=== PATIENT | male | born 1970 | race Caucasian/White ===

== ENCOUNTER 2022-04-18 13:22 | Outpatient (CLI) | payer OTHER, SELFPAY | END 2022-04-18 13:23 | disposition home or self-care (01) | PROVIDERS: PCP Internal Medicine; Visit Provider Internal Medicine | DX: Z00.00 Encounter for general adult medical examination without abnormal findings (principal); Z13.6 Encounter for screening for cardiovascular disorders; Z12.5 Encounter for screening for malignant neoplasm of prostate | CPT/HCPCS: 80053; 80061; 84153 ==

== ENCOUNTER 2022-12-10 09:05 | Outpatient (CLI) | payer OTHER, SELFPAY ==
--- NOTE | 2022-12-10 09:34 | W.ANESCHARGE ---
Anesthesia Charges Start Date/Time Anesthesia Start Date: 12/10/22 Anesthesia Start Time: 10:10 Stop Date/Time Anesthesia Stop Date: 12/10/22 Anesthesia Stop Time: 10:45
--- NOTE | 2022-12-10 10:51 | W.ANESCHARGE ---
Anesthesia Charges Start Date/Time Anesthesia Start Date: 12/10/22 Anesthesia Start Time: 10:10 Stop Date/Time Anesthesia Stop Date: 12/10/22 Anesthesia Stop Time: 10:45
== END 2022-12-10 09:06 | disposition home or self-care (01) ==
LOC: OP CLINIC 09:06
PROVIDERS: PCP Internal Medicine; Visit Provider Surgery
DX: Z12.11 Encounter for screening for malignant neoplasm of colon (principal); K64.8 Other hemorrhoids; K63.5 Polyp of colon; Z80.0 Family history of malignant neoplasm of digestive organs
CPT/HCPCS: 00811; 45385; 88305; J2704

== ENCOUNTER 2022-12-18 09:46 | Emergency (ER) | payer OTHER, SELFPAY ==
[2022-12-18] VITALS (14 sets, daily range): BP systolic 112–147; BP diastolic 56–97; PULSE 62–71; RESP 18; TEMP 36.6; O2SAT 94–98; BMI 41.1
[2022-12-18] MEDS: 0.9 % SODIUM CHLORIDE 1000 ml 1,000 ML IV (11:30)
[2022-12-18 11:51] LABS: Basophils Absolute Auto 0.03 K/uL (0.00-0.30); Basophils Percent Auto 0.6 % (0.0-3.0); Eosinophils Absolute Auto 0.26 K/uL (0.00-0.50); Eosinophils Percent Auto 5.4 % (0.0-7.0); Hematocrit 41.9 % (37.0-53.0); Hemoglobin* 13.5 gm/dL (13.5-17.5); Immature Granulocytes Abs Auto 0.01 K/uL (0.00-0.30); Immature Granulocytes Pct Auto 0.2 %; Lymphocytes Absolute Auto 1.46 K/uL (0.90-2.90); Lymphocytes Percent Auto 30.2 % (20-44); Mean Corpuscular HGB Conc 32 gm/dL (32-36); Mean Corpuscular Hemoglobin 28 pg (26-34); Mean Corpuscular Volume 86 fL (80-100); Monocytes Percent Auto 10.7 % (0.0-11.0); Neutrophils Absolute Auto 2.56 K/uL (1.7-7.0); Neutrophils Percent Auto 52.9 % (42.0-72.0); Platelet Count* 222 K/uL (140-440); RDW Coefficient of Variation % 14.5 % (11.5-15.5); Red Blood Count 4.87 m/uL (4.30-5.90); White Blood Count* 4.84 K/uL (4.50-11.00)
[2022-12-18 11:52] LABS: Albumin* 4.3 g/dL (3.3-5.0)
[2022-12-18 11:53] LABS: Chloride* 106 mmol/L (96-114); Potassium* 3.8 mmol/L (3.6-5.1); Sodium* 138 mmol/L (135-149)
[2022-12-18 11:54] LABS: Slide Review Reflex No
[2022-12-18 11:55] LABS: Alkaline Phosphatase* 77 U/L (40-150); Aspartate Amino Transferase* 49 U/L (12-35); Bilirubin Total* 0.6 mg/dL (0.1-1.5); Total Protein* 7.8 g/dL (6.0-8.3)
[2022-12-18 11:56] LABS: Alanine Aminotransferase* 38 U/L (4-50); D Dimer Quantitative* 0.31 ug/ml (0.00-0.50); Est. Creatinine Clearance* 102.75; Estimated Glomerular Filt Rate 92 ml/min
[2022-12-18 11:57] LABS: Anion Gap 8 mEq/L (7-15); Blood Urea Nitrogen* 18 mg/dL (7-30); Calcium* 9.3 mg/dL (8.4-10.6); Carbon Dioxide* 24 mmol/L (20-32); Glucose* 103 mg/dL (60-115)
[2022-12-18 11:59] LABS: C Reactive Protein* 0.7 mg/dL (0.5-1.0)
--- NOTE | 2022-12-18 12:31 | ED.GENADULT ---
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 He says he was just doing some work because his classes did not start for a little while and he was putting some shelving together. He does say that he was working with his arms overhead. He had an episode of feeling lightheaded and dizzy like he might faint, he denies vertigo. At the same time he says his chest felt ?funny although he is unable to further describe to me what that feels like. He specifically denies any pain, pressure or heaviness. He thinks maybe it felt like it was fluttery. He also notes that he has a little bit of pain on the left side of his neck. This pain does not radiate. Over time, symptoms have dissipated any now feels pretty close to back to normal. He denies any recent illness or injury, he has not had any neck trauma major or minor. He has no history of similar previous symptoms. He does not smoke or drink significantly. Here with his . Family history is negative for early coronary artery disease or stroke. He does not take any medications. He specifically denies any exertional symptoms, he says he worked out pretty hard this morning and felt good. Related Data Home Medications Medication Instructions Recorded Confirmed sildenafil 50 mg tablet 50 mg PO QDAY PRN 04/18/22 12/18/22 Previous Rx's Medication Instructions Recorded aripiprazole 5 mg tablet (Abilify) 5 mg PO QHS Anxiety #30 tabs 06/19/22 sertraline 100 mg tablet 200 mg (2 x 100 mg) PO QDAY 06/19/22 Anxiety #180 tabs Allergies Allergy/AdvReac Type Severity Reaction Status Date / Time No Known Drug Allergies Allergy Verified 07/22/22 09:53 Review of Systems Status of ROS: Reports: 10 or more systems reviewed and unremarkable except as noted in History and below PFS PFS Medical History Anxiety ?F41.9 - Anxiety disorder, unspecified (ICD-10) Screening due ?Z13.9 - Encounter for screening, unspecified (ICD-10) Social History Smoking Status: Never smoker Do you use any of these nicotine containing products: None Second hand tobacco smoke exposure: No How often do you have a drink containing alcohol: 2-3 times a week How many standard drinks containing alcohol do you have on a typical day: 5 or 6 How often do you have six or more drinks on one occasion: Never AUDIT-C Alcohol total score: 5 Non-prescribed substance use: denies use Little interest or pleasure in doing things: several days Feeling down, depressed, or hopeless: not at all Exam Narrative: Exam Narrative: Vital signs as noted above. In general, an alert, well-appearing patient. Head: Normocephalic, atraumatic. Eyes: Pupils are equal reactive. Extraocular movements are full without nystagmus. Conjunctivae are normal. ENT: Mucous membranes are moist. Throat is normal. Neck: Supple without lymphadenopathy. Mild tenderness in the left lateral neck, no swelling or erythema, no bruits. Heart: Regular rate and rhythm. No murmur or rub. Lungs: Clear bilaterally. No increased work of breathing, crackles or wheezes. Abdomen: Soft and nontender. No organomegaly. Extremities: Well perfused. No edema. No calf tenderness. Pulses intact. Neurologic: Patient is alert and oriented to person and place. Speech is fluent. Face is symmetric. Moves all extremities equally. Cerebellar function is intact by finger-nose testing. Affect: Normal. Skin: Warm and dry. Well perfused. Const: Vital Signs, click to edit/add: Vital Signs - 24 hr 12/18/22 10:05 12/18/22 11:42 12/18/22 12:02 Temperature 97.8 F Pulse Rate Pulse Rate [Pulse Oximeter] 68 65 Respiratory Rate 18 Blood Pressure Blood Pressure [Le ft Upper Arm] 112/56 L Blood Pressure [Ri ght Upper Arm] 147/97 H Pulse Oximetry 94 97 97 Oxygen Delivery Me thod Room Air Room Air 12/18/22 12:03 12/18/22 12:04 12/18/22 12:15 Temperature Pulse Rate 64 66 65 Pulse Rate [Pulse Oximeter] Respiratory Rate Blood Pressure 112/56 L Blood Pressure [Le ft Upper Arm] Blood Pressure [Ri ght Upper Arm] Pulse Oximetry 95 97 98 Oxygen Delivery Me thod 12/18/22 12:30 12/18/22 12:32 12/18/22 12:40 Temperature Pulse Rate 71 62 62 Pulse Rate [Pulse Oximeter] Respiratory Rate Blood Pressure 126/81 127/76 Blood Pressure [Le ft Upper Arm] Blood Pressure [Ri ght Upper Arm] Pulse Oximetry 98 98 97 Oxygen Delivery Me thod 12/18/22 12:42 Temperature Pulse Rate 66 Pulse Rate [Pulse Oximeter] Respiratory Rate Blood Pressure 131/85 Blood Pressure [Le ft Upper Arm] Blood Pressure [Ri ght Upper Arm] Pulse Oximetry 97 Oxygen Delivery Me thod Documenting provider has reviewed patient's vital signs: yes Course Course ED Course: On arrival patient had an EKG which by my review shows a normal sinus rhythm with a ventricular rate of 68. No acute ST segment changes. T-waves are unremarkable. I checked a number of labs including a CBC which showed a normal white blood cell count of 4.8, normal hemoglobin of 13.5 and a normal diff. A D-dimer was negative at 0.31. Metabolic panel was entirely normal, blood sugar was 103. LFTs unremarkable aside from an AST of 49. CRP was normal at 0.7. Initial point of care troponin was 0, repeat troponin is pending. Diagnostic considerations include orthostasis or vagal episode, arrhythmia, consideration given to possible subclavian steal syndrome but blood pressures are normal and equal in both arms, no history of previous similar episodes, felt to be less likely. Assuming 2nd troponin is negative I think it is reasonable to let him go home with a diagnosis of near syncope cause not determined. If he has recurrent spell should be seen again either in the ER by primary care, for overt fainting, severe pain etcetera return to the emergency department at any time. Patient did not have vertigo, does not have ataxia, no other neurologic complaints and no history of any type of neck trauma. Symptoms have dissipated without treatment. I suspect that the neck pain is musculoskeletal and not related to dissection. Vital Signs Vital signs: Initial Vital Signs Temperature 97.8 F 12/18/22 10:05 Temperature Source Temporal Artery Scan 12/18/22 10:05 Pulse Rate 68 12/18/22 10:05 Pulse Rhythm Regular 12/18/22 10:05 Respiratory Rate 18 12/18/22 10:05 Blood Pressure 147/97 H 12/18/22 10:05 Blood Pressure Mean 113 H 12/18/22 10:05 Blood Pressure Position Semi-Fowlers 12/18/22 10:05 Pulse Oximetry 94 12/18/22 10:05 Oxygen Delivery Method Room Air 12/18/22 10:05 Vital Signs Temperature 97.8 F 12/18/22 10:05 Pulse Rate 68 12/18/22 10:05 Respiratory Rate 18 12/18/22 10:05 Blood Pressure 147/97 H 12/18/22 10:05 Pulse Oximetry 94 12/18/22 10:05 Oxygen Delivery Method Room Air 12/18/22 10:05 Temperature 97.8 F 12/18/22 10:05 Pulse Rate 66 12/18/22 12:42 Respiratory Rate 18 12/18/22 10:05 Blood Pressure 131/85 12/18/22 12:42 Pulse Oximetry 97 12/18/22 12:42 Oxygen Delivery Method Room Air 12/18/22 12:02 Medications Administered Medications: Discontinued Medications Generic Name Dose Route Start Last Admin Trade Name Freq PRN Reason Stop Dose Admin Sodium Chloride 1,000 mls @ 1,000 mls/hr 12/18/22 11:45 12/18/22 12:48 0.9 % Sodium Chloride 1000 Ml IV 12/18/22 12:44 Infused .Q1H RICARDO Infusion Medical Decision Making Lab Data Labs: Lab Results 12/18/22 12/18/22 12/18/22 Range/Units 10:20 10:43 12:27 WBC 4.84 (4.50-11.00) K/uL RBC 4.87 (4.30-5.90) m/uL Hgb 13.5 (13.5-17.5) gm/dL Hct 41.9 (37.0-53.0) % MCV 86 (80-100) fL MCH 28 (26-34) pg MCHC 32 (32-36) gm/dL RDW Coeff of Brian 14.5 (11.5-15.5) % Plt Count 222 (140-440) K/uL Neut % (Auto) 52.9 (42.0-72.0) % Lymph % (Auto) 30.2 (20-44) % Fergus % (Auto) 10.7 (0.0-11.0) % Eos % (Auto) 5.4 (0.0-7.0) % Baso % (Auto) 0.6 (0.0-3.0) % Neut # (Auto) 2.56 (1.7-7.0) K/uL Lymph # (Auto) 1.46 (0.90-2.90) K/uL Fergus # (Auto) 0.50 (0.00-0.90) K/UL Eos # (Auto) 0.26 (0.00-0.50) K/uL Baso # (Auto) 0.03 (0.00-0.30) K/uL Abs Immat Gran (auto) 0.01 (0.00-0.30) K/uL Imm/Tot Granulo (auto) 0.2 % D-Dimer Quant (PE/DVT) 0.31 (0.00-0.50) ug/ml Sodium 138 (135-149) mmol/L Potassium 3.8 (3.6-5.1) mmol/L Chloride 106 (96-114) mmol/L Carbon Dioxide 24 (20-32) mmol/L Anion Gap 8 (7-15) mEq/L BUN 18 (7-30) mg/dL Creatinine 1.0 (0.5-1.5) mg/dL Estimated Creat Clear 102.75 Estimated GFR 92 ml/min Glucose 103 (60-115) mg/dL Calcium 9.3 (8.4-10.6) mg/dL Total Bilirubin 0.6 (0.1-1.5) mg/dL Direct Bilirubin 0.0 (0.0-0.5) mg/dL AST 49 H (12-35) U/L ALT 38 (4-50) U/L Alkaline Phosphatase 77 (40-150) U/L C-Reactive Protein 0.7 (0.5-1.0) mg/dL Total Protein 7.8 (6.0-8.3) g/dL Albumin 4.3 (3.3-5.0) g/dL POC Troponin I 0.00 L 0.00 L (0.01-0.04) ng/ml Discharge Plan Discharge Clinical Impression: Near syncope Patient Disposition: Home, Self-Care Condition: Improved Instructions: Near Syncope (ED) Additional Instructions: If you have recurrent symptoms, follow-up with primary care or return. For fainting, significant pain or other acute worsening return at any time to the emergency department. Prescriptions: No Action sildenafil 50 mg tablet 50 mg PO QDAY PRN Rx Instructions: administer 30 minutes to 4 hours before activity sertraline 100 mg tablet 200 mg PO QDAY Qty: 180 3RF aripiprazole [Abilify] 5 mg tablet 5 mg PO QHS Qty: 30 0RF Follow Up/Referrals: Edvin Torres MD [Primary Care Provider] - Stand Alone Forms: [facility] Info Instructions
== END 2022-12-18 13:14 | disposition home or self-care (01) ==
PROVIDERS: Emergency Provider Emergency Medicine; PCP Internal Medicine
DX: R55 Syncope and collapse (principal)
CPT/HCPCS: 36415; 80048; 80076; 84484; 85025; 85379; 86140; 93005; 99284; J7030

== ENCOUNTER 2023-01-13 11:09 | Observation (INO) | payer OTHER, SELFPAY ==
[2023-01-13] VITALS (9 sets, daily range): BP systolic 124–160; BP diastolic 69–120; PULSE 74–108; RESP 16–22; TEMP 21.1–37.1; O2SAT 94; BMI 41.1; BMI 41.4
--- NOTE | 2023-01-13 11:19 | CRLHL7_ITS ---
For Patients: As a result of the Century Cures Act, medical imaging exams and procedure reports are released immediately into your electronic medical record. You may view this report before your referring provider. If you have questions, please contact your health care provider. INDICATION: Right-sided neck pain. TECHNIQUE: CT images acquired through the neck following intravenous contrast. COMPARISON: None. FINDINGS: Beam hardening artifact secondary to dental amalgam limits evaluation of adjacent structures. Diffuse enlargement and striated enhancement of the palatine tonsils, compatible with tonsillitis. Small foci of hypoenhancement within the inferior right and left palatine tonsils may represent phlegmon and/or edema. No definitive or drainable peritonsillar abscess within exam limitations. There is mild narrowing of the oropharyngeal airway. The parapharyngeal fat is preserved. No thickening of the epiglottis or retropharyngeal edema. Diffuse enlargement of the lingual tonsils. No enhancing lesions in the oral cavity or floor of mouth. The parotid and submandibular glands unremarkable. Enlarged bilateral level II and III lymph nodes are nonspecific, though demonstrate elongated morphology and are most likely reactive. The thyroid gland is unremarkable. Limited images through the brain are without pathologic intracranial enhancement. Mild right maxillary sinus mucosal thickening. The mastoid air cells are clear. Multilevel cervical spondylosis. No aggressive osseous lesions. No concerning opacities in the visualized lungs. IMPRESSION: 1. Diffuse enlargement and striated enhancement of the palatine tonsils, compatible with tonsillitis. Small foci of hypoenhancement within the inferior right and left palatine tonsils may represent phlegmon and/or edema. No definitive or drainable peritonsillar abscess is visualized within exam limitations. There is mild narrowing of the oropharyngeal airway. 2. Multiple enlarged bilateral level II and III lymph nodes demonstrate elongated morphology and are most likely reactive. Please note that all CT scans at this facility use dose modulation, iterative reconstruction, and/or weight-based dosing when appropriate to reduce radiation dose to as low as reasonably achievable. Dictated by Pacheco Campbell MD @ 01/13/2023 12:16:35 PM (Electronically Signed)
--- NOTE | 2023-01-13 11:22 | ED_ITS ---
HPI - General Adult General Chief complaint: Sore Throat Stated complaint: Referred from clinic, possible throat abscess Time Seen by Provider: 01/13/23 11:10 History of Present Illness HPI narrative: 52 year white male went to Urgent Care today with severe sore throat for couple of days real difficulty swallowing right greater than left sore throat. Positive for strep, white count [id number], patient has had difficulty swallowing, does feel little bit of pain into his lower throat as well, mostly S1 is swallowing in his upper throat. He has had fever. No other complaints, no nuchal rigidity. No history of trismus, no history tree of being unable to swallow but it is painful. Reports a right-sided this throat is worse in the left as mention Related Data Home Medications Medication Instructions Recorded Confirmed aripiprazole 2 mg tablet 2 mg PO HS anxiety 01/13/23 01/13/23 sertraline 100 mg tablet 200 mg PO HS Anxiety 01/13/23 01/13/23 Allergies Allergy/AdvReac Type Severity Reaction Status Date / Time No Known Drug Allergies Allergy Verified 07/22/22 09:53 Review of Systems Status of ROS: Reports: 6 or more systems reviewed and unremarkable except as noted in History and below [facility] Medical History Anxiety ?F41.9 - Anxiety disorder, unspecified (ICD-10) Screening due ?Z13.9 - Encounter for screening, unspecified (ICD-10) Social History Smoking Status: Never smoker Do you use any of these nicotine containing products: None Second hand tobacco smoke exposure: No How often do you have a drink containing alcohol: 2-3 times a week How many standard drinks containing alcohol do you have on a typical day: 5 or 6 How often do you have six or more drinks on one occasion: Never AUDIT-C Alcohol total score: 5 Non-prescribed substance use: denies use Little interest or pleasure in doing things: several days Feeling down, depressed, or hopeless: not at all Exam Narrative: Exam Narrative: Objective: Vital signs show elevated blood pressure, afebrile now Alert orient x3 Bilateral tonsillar hypertrophy right greater than left redness of the throat pharyngeal cellulitic changes apparent, no marked exudate, no obvious peritonsillar abscess, but again the tonsils are big Neck is supple Neurologic grossly nonfocal Patient has normal phonation. No obvious trismus Const: Vital Signs, click to edit/add: Vital Signs - 24 hr 01/13/23 11:12 01/13/23 12:54 Temperature 98.8 F Pulse Rate [Right Pulse Oximeter] 108 H 88 Respiratory Rate 22 16 Blood Pressure [Ri t Upper Arm] 160/120 H 146/85 H Pulse Oximetry 94 94 Oxygen Delivery Me thod Room Air Room Air Course Vital Signs Vital signs: Initial Vital Signs Temperature 98.8 F 01/13/23 11:12 Temperature Source Temporal Artery Scan 01/13/23 11:12 Pulse Rate 108 H 01/13/23 11:12 Respiratory Rate 22 01/13/23 11:12 Respiratory Effort Normal 01/13/23 11:12 Respiratory Depth Normal 01/13/23 11:12 Respiratory Pattern Normal 01/13/23 11:12 Blood Pressure 160/120 H 01/13/23 11:12 Blood Pressure Mean 133 H 01/13/23 11:12 Blood Pressure Position Sitting 01/13/23 11:12 Pulse Oximetry 94 01/13/23 11:12 Oxygen Delivery Method Room Air 01/13/23 11:12 Vital Signs Temperature 98.8 F 01/13/23 11:12 Pulse Rate 108 H 01/13/23 11:12 Respiratory Rate 22 01/13/23 11:12 Blood Pressure 160/120 H 01/13/23 11:12 Pulse Oximetry 94 01/13/23 11:12 Oxygen Delivery Method Room Air 01/13/23 11:12 Temperature 98.8 F 01/13/23 11:12 Pulse Rate 88 01/13/23 12:54 Respiratory Rate 16 01/13/23 12:54 Blood Pressure 146/85 H 01/13/23 12:54 Pulse Oximetry 94 01/13/23 12:54 Oxygen Delivery Method Room Air 01/13/23 12:54 Medications Administered Medications: Discontinued Medications Generic Name Dose Route Start Last Admin Trade Name Freq PRN Reason Stop Dose Admin Sodium Chloride 1,000 mls @ 6,000 mls/hr 01/13/23 11:30 01/13/23 12:27 0.9 % Sodium Chloride 1000 Ml IV 01/13/23 11:39 Infused .Q10M RICARDO Infusion Ampicillin Sodium/Sulbactam 100 mls @ 200 mls/hr 01/13/23 11:21 01/13/23 12:27 Sodium 3 gm/ Sodium Chloride IVPB 01/13/23 11:22 Infused ONCE ONE Infusion Methylprednisolone Sodium Succinate 125 mg 01/13/23 11:20 01/13/23 11:52 Methylprednisolone Sod Succ 62.5 Mg/Ml (125) IVP 01/13/23 11:21 125 mg ONCE ONE Administration Morphine Sulfate 4 mg 01/13/23 11:20 01/13/23 11:53 Morphine 4 Mg/Ml Inj IVP 01/13/23 11:21 4 mg ONCE ONE Administration Medical Decision Making MDM Narrative Medical decision making narrative: [age] year white male with strep throat with rule out peritonsillar abscess on the right with increasing pain and swelling. At this point I think that is reasonable to do a CT of his neck, will put an IV and give a L fluid give him some IV Solu-Medrol for steroid coverage as well as Unasyn for antibiotic, [place] [id number] with a positive strep test at the urgent care. This will not be repeated. Disposition pending his CT scan. Will also give him morphine 4 mg IV for pain relief. ENT consult if there is an abscess. Addendum 12:23 p.m. the patient has minimal airway narrowing, has edema or phlegmon and palatine tonsil, is mild pharyngeal cellulitic change, he has got a severe sore throat with positive strep. Have given him steroid and Unasyn. Will consult with ENT regarding treatment. Possibly admit the man and have him get IV fluids and steroids and antibiotics until he is improved. Addendum 12:35 p.m. I consulted with Dr. Brigitte Fong in looked at his CT scan. Patient has some palatine phlegmon but no obvious drainable abscess. Given the lower airway looks okay even though the upper airway is slightly swollen he felt that admission IV antibiotics IV steroids and pain control be appropriate. Will discuss with hospitalist. Discharge Plan Discharge Clinical Impression: Strep throat Prescriptions: No Action aripiprazole 2 mg tablet 2 mg PO HS sertraline 100 mg tablet 200 mg PO HS Follow Up/Referrals: Edvin Torres MD [Primary Care Provider] -
[2023-01-13] MEDS: 0.9 % SODIUM CHLORIDE 1000 ml 1,000 ML 6000 ML IV (11:42)
[2023-01-13] MEDS: AMPICILLIN/SULBACTAM 3 GM in 0.9 % SODIUM CHLORIDE Mini-bag 100 ML IVPB ×3 (11:51→23:33)
[2023-01-13] MEDS: METHYLPREDNISOLONE SOD SUCC 62.5 MG/ML (125) 125 MG IVP (11:52)
[2023-01-13] MEDS: MORPHINE 4 MG/ML INJ IVP (11:53)
--- NOTE | 2023-01-13 13:15 | ED.NURSE ---
report given to m/s nurse Addie
--- NOTE | 2023-01-13 14:56 | PM.IMHP1 ---
Hospitalist- H&P: HPI History of Present Illness Date Seen: 01/13/23 Chief complaint: Odynophagia, dehydration, strep pharyngitis Narrative: Virgil Rodriguez is a 52 year old man who presents with a 2 day history of increasing sore throat, right greater than left, evolving odynophagia, difficult to sleep because of the pain and having to wake up every hour to spit out saliva because of the pain associated with trying to swallow it, intermittent fever although he did not check his temperature. Denies trismus. Denies headache. Denies focal motor neurologic deficits. Emergency department he is found to have no nuchal rigidity, bilateral hypertrophy tonsils right greater than left, pharyngeal erythema, streptococcal pharyngitis, [place] [id number] scan of the neck soft tissue demonstrates the followin. Diffuse enlargement and striated enhancement of the palatine tonsils, compatible with tonsillitis. Small foci of hypoenhancement within the inferior right and left palatine tonsils may represent phlegmon and/or edema. No definitive or drainable peritonsillar abscess is visualized within exam limitations. There is mild narrowing of the oropharyngeal airway. 2. Multiple enlarged bilateral level II and III lymph nodes demonstrate elongated morphology and are most likely reactive. Treated with 1 L normal saline, methylprednisolone 125 mg IV, 3 g IV ampicillin and sulbactam, morphine. Admitted to the hospital for observation, more IV fluids, and attempt to advance diet as tolerated. 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 Does have plenty of exposure to possible source of infection. Lives with his fiancee who has not had any similar symptoms. Denies chest heaviness, pressure, tightness, or pain. Denies dyspnea at rest, paroxysmal nocturnal dyspnea, orthopnea. Has had cough trying to clear phlegm from back of throat. Has had some nasopharyngeal postnasal drip as well. Denies syncope or near-syncope. Acknowledges a sense of lightheadedness when gets up too quickly. Denies nausea found moaning. Denies dyspepsia or abdominal pain. Denies dysphagia per se. No constipation or diarrhea. No dysuria, urgency, frequency, hematuria. Again has had some intermittent sense of fevers while at home but did not check his temperature. Denies waking or weight loss. Denies edema. Denies night sweats. General anxiety disorder has been well controlled on current medical regimen. Follows with Dr. Roberto Torres as his primary care physician. Requests full resuscitation in the event of cardiac bowel under demise. Designates his fiancee, Salina Betancourt, as his primary contact or power of tax attorney for health should that be required, cell phone number [phone]. [facility], [facility] Medical History Obesity ?E66.9 - Obesity, unspecified (ICD-10) Anxiety ?F41.9 - Anxiety disorder, unspecified (ICD-10) Screening due ?Z13.9 - Encounter for screening, unspecified (ICD-10) Social History What is your current living situation?: I presently have a place to live Problems where you live: no known problems Problems where you live details: none In the past 12 months, utilities in danger of being shut off: no In past 12 months, lack of transportation kept you from medical appts, meetings, work, or getting things needed for daily living: no In the past 12 mos, have been you worried that your food would run out before you had money to buy more?: never true In the past 12 mos, the food you bought just didn't last and you didn't have money to buy more?: never true Highest level of school completed/degree received: Bachelor's degree Smoking Status: Never smoker Do you use any of these nicotine containing products: None Second hand tobacco smoke exposure: No How often do you have a drink containing alcohol: 2-4 times a month Alcohol type: beer How many standard drinks containing alcohol do you have on a typical day: 5 or 6 How often do you have six or more drinks on one occasion: Never AUDIT-C Alcohol total score: 4 Non-prescribed substance use: denies use Caffeine: Yes (1 pop a day) How often does anyone, including family, friends and others, physically hurt you: never How often does anyone, including family, friends and others, insult or talk down to you: never How often does anyone, including family, friends and others, threaten you with harm: never How often does anyone, including family, friends and others, scream or curse at you: never Little interest or pleasure in doing things: several days Feeling down, depressed, or hopeless: not at all service: No Meds Home Medications and Allergies Home Medications Medication Instructions Recorded Confirmed Type aripiprazole 2 mg tablet 2 mg PO HS anxiety 01/13/23 01/13/23 History sertraline 100 mg tablet 200 mg PO HS Anxiety 01/13/23 01/13/23 History Allergies Allergy/AdvReac Type Severity Reaction Status Date / Time No Known Drug Allergies Allergy Verified 07/22/22 09:53 Exam Narrative: Exam Narrative: Examined patient in hospital room. Aside from grimacing when he swallows he appears fairly comfortable. No acute distress. Hearing are grossly normal. Alert and oriented to self, place, time, situation. Friendly, articulate, cooperative. External auditory canals are clear with normal tympanic membranes. Midline nasal septum. Abnormal oropharynx with erythema and injection, bilateral tonsillar hypertrophy, small patch of purulent exudate on the right tonsillar pillar, Mallampati class 3 airway. Dentition in fair repair. Neck is supple. No nuchal rigidity. Midline trachea. Shoddy cervical lymphadenopathy, right greater than left. Neck lymphadenopathy. No Mumtaz lymphadenopathy. Lungs are clear to auscultation without wheezing, rhonchi, or rales. Chest wall excursions are full. Heart tones with regular rhythm, normal S1-S2, without murmur, gallop, or rub. Abdomen is obese with active bowel sounds, soft, nontender without organomegaly or masses, rebound or guarding. No focal motor neurologic deficits. Independent transfer, station, and gait. Cranial nerves 3-12 grossly normal. No tremor, asterixis, or ataxia. No icterus or jaundice. No petechiae or rashes. Const: Vital Signs, click to edit/add: Vital Signs - 24 hr 01/13/23 11:12 01/13/23 12:54 01/13/23 13:21 Temperature 98.8 F 97.7 F Pulse Rate [Pulse Oximeter] 75 Pulse Rate [Right Pulse Oximeter] 108 H 88 Respiratory Rate 22 16 16 Blood Pressure [Le ft Arm] 152/87 H Blood Pressure [Ri ght Upper Arm] 160/120 H 146/85 H Pulse Oximetry 94 94 94 Oxygen Delivery Me thod Room Air Room Air Room Air Documenting provider has reviewed patient's vital signs: yes Hospitalist - H&P: Result Imaging CT scan of soft tissue of neck: Attestation: I have reviewed the pertinent imaging results. Radiologist's impression: 1. Diffuse enlargement and striated enhancement of the palatine tonsils, compatible with tonsillitis. Small foci of hypoenhancement within the inferior right and left palatine tonsils may represent phlegmon and/or edema. No definitive or drainable peritonsillar abscess is visualized within exam limitations. There is mild narrowing of the oropharyngeal airway. 2. Multiple enlarged bilateral level II and III lymph nodes demonstrate elongated morphology and are most likely reactive. Assessment and Plan Assessment and plan (1) Odynophagia: Problem comment: - oropharyngeal, in association with streptococcal pharyngitis - magic mouthwash gargle and swallow q.4 hours p.r.n. - already given methylprednisolone IV - treat streptococcal pharyngitis - clear liquid diet and advanced as tolerated - scheduled acetaminophen and ibuprofen for analgesia oxycodone orally and morphine IV P p.r.n. - explained to the patient that he should not return to work tomorrow and that additional decisions will need to be made in the morning depending how he is doing. Status: Acute (2) Dehydration: Problem comment: - received 1 L of normal saline in the emergency department - 1 L normal saline at 125 mL/hour on the floor and then saline lock IV - clear liquid diet, advanced as tolerated Status: Acute (3) Acute streptococcal pharyngitis: Problem comment: - ampicillin with sulbactam 3 g IV q.6 hours while in hospital. - can switch to penicillin or amoxicillin at time of discharge orally. - potentially be able to return to work after 24 hours of treatment and being afebrile and able to swallow again. Status: Acute Plan 1. Reviewed with patient and his fiancee. 2. Answered their questions. 3. They are agreeable with above stated plans and recommendations.
[2023-01-13] MEDS: 0.9 % SODIUM CHLORIDE 1000 ml 1,000 ML 125 ML IV (15:17)
[2023-01-13] MEDS: DIPHEN/LIDO/ALUM/MAG/SIMETH 5 ML SUSPENSION MUCOUS MEM (15:31)
[2023-01-13] MEDS: guaiFENesin 100 MG/ML CUP PO (15:31)
[2023-01-13] MEDS: ACETAMINOPHEN 325 MG TABLET 650 MG PO ×2 (17:10→20:35)
[2023-01-13] MEDS: IBUPROFEN 400 MG TABLET PO (17:45)
--- NOTE | 2023-01-13 18:27 | PC.NURSE ---
End of Shift: Patient pleasant and cooperative. Patient vitally stable, lungs clear, BS WNL, IV running NS at 125. Patient independent in room. Patient rates pain 3-5/10, scheduled pain meds given. Cough syrup and magic mouth wash given once, with good throat pain relieve. Patient urinating and tolerating full liquid diet. Patient urinating.
[2023-01-13] MEDS: SODIUM CHLORIDE 0.9 % (FLUSH) 10 ML SYRINGE 5 ML IVF (20:35)
[2023-01-13] MEDS: SERTRALINE 100 MG TABLET 200 MG PO (20:35)
[2023-01-13] MEDS: guaiFENesin 600 MG TAB.ER.12H PO (20:35)
[2023-01-13] MEDS: ARIPiprazole 10 MG TABLET 2.5 MG PO (20:35)
[2023-01-14 03:24] VITALS: BP 117/73; PULSE 55; RESP 16; TEMP 36.3; O2SAT 98
--- NOTE | 2023-01-14 04:45 | PC.NURSE ---
Pt rested well this night. Up IND. Pt rates pain 1-2/10 and states it is very tolerable compared to last night.
[2023-01-14] MEDS: AMPICILLIN/SULBACTAM 3 GM in 0.9 % SODIUM CHLORIDE Mini-bag 100 ML IVPB (05:32)
[2023-01-14 07:00] VITALS: RESP 18; O2SAT 93
[2023-01-14 07:29] VITALS: BP 125/76; PULSE 72; RESP 18; TEMP 36.9; O2SAT 93
[2023-01-14] MEDS: IBUPROFEN 400 MG TABLET PO (07:37)
[2023-01-14 08:42] LABS: Hematocrit 41.2 % (37.0-53.0); Hemoglobin* 13.2 gm/dL (13.5-17.5); Mean Corpuscular HGB Conc 32 gm/dL (32-36); Mean Corpuscular Hemoglobin 28 pg (26-34); Mean Corpuscular Volume 88 fL (80-100); Platelet Count* 195 K/uL (140-440); Red Blood Count 4.69 m/uL (4.30-5.90)
[2023-01-14 08:43] LABS: Slide Review Reflex No
[2023-01-14 09:00] LABS: Chloride* 107 mmol/L (96-114)
[2023-01-14 09:01] LABS: Potassium* 4.2 mmol/L (3.6-5.1); Sodium* 137 mmol/L (135-149)
[2023-01-14 09:03] LABS: Creatinine* 0.7 mg/dL (0.5-1.5); Est. Creatinine Clearance* 146.79; Estimated Glomerular Filt Rate 112 ml/min
[2023-01-14 09:04] LABS: Anion Gap 6 mEq/L (7-15); Blood Urea Nitrogen* 21 mg/dL (7-30); Carbon Dioxide* 24 mmol/L (20-32)
[2023-01-14 09:05] LABS: Calcium* 8.6 mg/dL (8.4-10.6); Glucose* 135 mg/dL (60-115)
[2023-01-14 09:07] LABS: C Reactive Protein* 7.4 mg/dL (0.5-1.0)
[2023-01-14] MEDS: ACETAMINOPHEN 325 MG TABLET 650 MG PO (09:10)
[2023-01-14] MEDS: SODIUM CHLORIDE 0.9 % (FLUSH) 10 ML SYRINGE 5 ML IVF (09:10)
[2023-01-14] MEDS: guaiFENesin 600 MG TAB.ER.12H PO (09:10)
--- NOTE | 2023-01-14 09:41 | P.DS_ITS ---
DS: Providers Provider Date Seen: 01/14/23 Date of admission: 01/13/23 13:17 Primary care physician: Edvin Torres MD Admitting Clinician: Dr Brandyn Crespo Attending Physician on discharge: Jewel Bernal MD Date of Discharge: 01/14/23 DS: Diagnosis Discharge Diagnosis (1) Acute streptococcal pharyngitis: Status: Acute Problem details: - ampicillin with sulbactam 3 g IV q.6 hours while in hospital. - can switch to penicillin or amoxicillin at time of discharge orally. - potentially be able to return to work after 24 hours of treatment and being afebrile and able to swallow again. (2) Dehydration: Status: Acute Problem details: - received 1 L of normal saline in the emergency department - 1 L normal saline at 125 mL/hour on the floor and then saline lock IV - clear liquid diet, advanced as tolerated (3) Odynophagia: Status: Acute Problem details: - oropharyngeal, in association with streptococcal pharyngitis - magic mouthwash gargle and swallow q.4 hours p.r.n. - already given methylprednisolone IV - treat streptococcal pharyngitis - clear liquid diet and advanced as tolerated - scheduled acetaminophen and ibuprofen for analgesia oxycodone orally and morphine IV P p.r.n. - explained to the patient that he should not return to work tomorrow and that additional decisions will need to be made in the morning depending how he is doing. (4) Obesity: Status: Acute Problem details: 01/13/2023: BMI 41 DS: Summary Hospital Course Hospital Course: The patient was admitted for acute strep pharyngitis. He was treated with IV steroids in ED and IV antibiotics. His diet was advanced; tolerated diet. Hemodynamically stable on date of discharge. He is being discharged with 9 days of amoxicillin. Post hopsital PCP follow up in 5 days; if not improving consider ENT referral. Time Spent with Patient Time attestation: Total time spent providing and/or coordinating discharge services: Exam Narrative: Exam Narrative: Gen: no acute distress HEENT: NCAT EOMI mmm; minimal erythema in posterior oropharynx with mild/moderate enlarged tonsills no exudate Neck: Supple CV: RRR normal s1 s2 Lungs: CTAB Abd: Soft,nt, nd Neuro: Alert, oriented, CN grossly intact; nonfocal screening?exam Psych: appropriate affect MSK: age appropriate muscle mass Skin; Warm, dry no rash on face Const: Vital Signs, click to edit/add: Vital Signs - 24 hr 01/13/23 11:12 01/13/23 12:54 01/13/23 13:21 Temperature 98.8 F 97.7 F Pulse Rate [Pulse Oximeter] 75 Pulse Rate [Right Pulse Oximeter] 108 H 88 Respiratory Rate 22 16 16 Blood Pressure [Le ft Arm] 152/87 H Blood Pressure [Ri ght Upper Arm] 160/120 H 146/85 H Pulse Oximetry 94 94 94 Oxygen Delivery Me thod Room Air Room Air Room Air 01/13/23 15:21 01/13/23 15:21 01/13/23 15:21 Temperature 69.9 F L Pulse Rate [Pulse Oximeter] 81 81 Pulse Rate [Right Pulse Oximeter] Respiratory Rate 16 16 16 Blood Pressure [Le ft Arm] 152/91 H Blood Pressure [Ri ght Upper Arm] Pulse Oximetry 94 94 Oxygen Delivery Me thod Room Air Room Air 01/13/23 19:08 01/13/23 20:35 01/13/23 21:19 Temperature 96.6 F L 96.6 F L 96.6 F L Pulse Rate [Pulse Oximeter] 76 Pulse Rate [Right Pulse Oximeter] Respiratory Rate 16 Blood Pressure [Le ft Arm] 124/69 Blood Pressure [Ri ght Upper Arm] Pulse Oximetry 94 Oxygen Delivery Me thod Room Air 01/13/23 22:02 01/13/23 22:04 01/13/23 22:04 Temperature 97 F L Pulse Rate [Pulse Oximeter] 74 74 Pulse Rate [Right Pulse Oximeter] Respiratory Rate 16 16 16 Blood Pressure [Le ft Arm] 127/87 Blood Pressure [Ri ght Upper Arm] Pulse Oximetry 94 94 Oxygen Delivery Me thod Room Air Room Air 01/14/23 03:24 01/14/23 07:00 01/14/23 07:29 Temperature 97.4 F L 98.4 F Pulse Rate [Pulse Oximeter] 55 L 72 Pulse Rate [Right Pulse Oximeter] Respiratory Rate 16 18 18 Blood Pressure [Le ft Arm] 117/73 125/76 Blood Pressure [Ri ght Upper Arm] Pulse Oximetry 98 93 93 Oxygen Delivery Me thod Room Air Room Air Room Air DS: Data Data Completed and Pending Labs on day of discharge: Labs from last 24 hours 01/14/23 08:33 WBC 16.10 H RBC 4.69 Hgb 13.2 L Hct 41.2 MCV 88 MCH 28 MCHC 32 Plt Count 195 Sodium 137 Potassium 4.2 Chloride 107 Carbon Dioxide 24 Anion Gap 6 L BUN 21 Creatinine 0.7 Estimated Creat Clear 146.79 Estimated GFR 112 Glucose 135 H Calcium 8.6 C-Reactive Protein 7.4 H Discharge Plan Discharge Disposition: Home, Self-Care Date of Admission: 01/13/23 13:17 Primary Care Provider: Edvin Torres Condition: Improved Anticipated Discharge Date/Time: 01/14/23 11:00 Discharge Medications: New amoxicillin 500 mg tablet 500 mg PO BID 9 Days Qty: 18 0RF Continued aripiprazole 2 mg tablet 2 mg PO HS sertraline 100 mg tablet 200 mg PO HS Discharge Orders: Discharge Order (Routine); Ordered 01/14/23 Ordered By: Jewel Bernal Patient Education: Amoxicillin (By mouth), Pharyngitis (GEN) Activity Level: Activity as Tolerated Discharge Diet: Regular Follow Up Appointments: Edvin Torres MD [Primary Care Provider] - 01/21/23 10:30 am (Please follow up with PCP clinic in 5 days for post hospital follow up) Forms: [employer] Info Instructions
--- NOTE | 2023-01-14 11:09 | PC.NURSE ---
shift note: pt up indept in room. pt denies pain. pt states he feels much better than admit. pt tolerating soft diet. vss stable. pt afeb. IV dc'd intact. reviewed dc instructions and copies sent with pt. Belongings reviewed and sent with pt.
== END 2023-01-14 09:45 | disposition home or self-care (01) ==
LOC: ED 11:39 → MEDSURG 13:18
PROVIDERS: Family Medicine; Admitting Provider Emergency Medicine; Emergency Provider Family Medicine; PCP Internal Medicine; Visit Provider Emergency Medicine
DX: J02.0 Streptococcal pharyngitis (principal); R13.12 Dysphagia, oropharyngeal phase; E86.0 Dehydration; D72.829 Elevated white blood cell count, unspecified; E66.9 Obesity, unspecified; Z68.41 Body mass index [BMI] 40.0-44.9, adult; G47.01 Insomnia due to medical condition; F41.9 Anxiety disorder, unspecified
CPT/HCPCS: 36415; 70491; 80048; 85027; 86140; 96361; 96365; 96366; 96375; 99284; A9270; G0378; J0295; J2270; J2930; J7030; Q9967

== ENCOUNTER 2025-01-14 09:37 | Outpatient (CLI) | payer OTHER, SELFPAY ==
[2025-01-14 10:21] LABS: PCR FLU A Negative PCR FLU A (Negative); PCR FLU B Negative PCR FLU B (Negative); PCR RSV Negative PCR RSV (Negative); SARS PCR* Negative SARS-CoV-2 (Negative)
== END 2025-01-14 09:38 | disposition home or self-care (01) ==
PROVIDERS: PCP Internal Medicine
DX: R52 Pain, unspecified (principal)
CPT/HCPCS: 87631